=== PATIENT | female | born 1995 | race American Indian/Alaskan Native ===

== ENCOUNTER 2017-06-14 10:59 | Emergency (ER) | payer BC ==
[2017-06-14 11:20] VITALS: BP 136/83
[2017-06-14] MEDS ORDERED: DUONEB *Not for PRN Use IH ONE (11:49)
--- NOTE | 2017-06-14 11:51 | Emergency Department Report ---
Blank Doc - Documentation Documentation: Patient is 22 years old female with no significant past medical history. Patient presented to the ER complaining of shortness of breath started yesterday. Patient stated that she feel like she is allergic to something. She denied any rash. On exam patient has diffuse wheezing with increase in expiratory time. Patient will need breathing treatments and chest x-ray.
--- NOTE | 2017-06-14 12:09 | XRay Report ---
Single view chest: Next History: Shortness of breath. Findings: Normal cardiomediastinal silhouette. Trachea is midline. No consolidation, pneumothorax or pleural effusion. Impression: No acute cardiopulmonary findings
[2017-06-14] MEDS ORDERED: ATROVENT IH ONE (12:45)
[2017-06-14] MEDS ORDERED: XOPENEX IH ONE (12:45)
[2017-06-14] MEDS ORDERED: ZOFRAN ODT PO ONE (12:49)
--- NOTE | 2017-06-14 12:50 | Emergency Department Report ---
HPI - General Chief Complaint: Dyspnea/Respdistress Time Seen by Provider: 06/14/17 11:30 - HPI HPI: Patient is 22 years old female with no significant past medical history. Patient presented to the ER complaining of shortness of breath started yesterday. Patient stated that she feel like she is allergic to something. She denied any rash. Patient reports nasal congestion and drainage with postnasal drainage from pollen. Nasal congestion, drainage and postnasal drip proceeded shortness of breath and wheezing by over a week. No [id number] medication taken. Denies any headache, chest pain, nausea or vomiting. Denies any fever or chills. Nothing makes it betteror worse. Denies control, denies any recent travel long distance by airplane or car. He denies any swollen extremities. Denies any history of clots in her lungs or legs. ED Past Medical Hx - Past Medical History Previous Medical History?: Yes Additional medical history: Seasonal allergies - Surgical History Past Surgical History?: No - Family History Family history: no significant - Social History Smoking Status: Current Every Day Smoker Substance Use Type: Alcohol, Marijuana - Medications Home Medications: Home Medications Medication Instructions Recorded Confirmed Last Taken Type ALBUTEROL Inhaler [ProAir HFA 2 puff IH Q6H PRN #1 inhalation 06/14/17 Unknown Rx Inhaler] Amoxicillin/K Clav Tab [Augmentin 1 tab PO Q12HR 10 Days #20 tab 06/14/17 Unknown Rx 875 mg] Cetirizine HCl [ZyrTEC] 10 mg PO QAM 14 Days #14 capsule 06/14/17 Unknown Rx Fluticasone [Flonase] 1 spray NS QDAY 14 Days #1 bottle 06/14/17 Unknown Rx predniSONE [Deltasone] 50 mg PO QDAY 5 Days #5 tab 06/14/17 Unknown Rx ED Review of Systems ROS: Stated complaint: CHEST PAIN/DIFF BREATHING Other details as noted in HPI Comment: All other systems reviewed and negative Constitutional: no symptoms reported Eyes: denies: eye pain, eye discharge ENT: congestion. denies: ear pain, throat pain, dental pain, epistaxis Respiratory: cough, shortness of breath, SOB with exertion, wheezing. denies: orthopnea, SOB at rest, stridor Cardiovascular: denies: chest pain, palpitations, edema, syncope Gastrointestinal: denies: abdominal pain, nausea, vomiting, diarrhea, constipation, hematemesis, melena, hematochezia Genitourinary: denies: urgency, dysuria, hematuria, discharge Skin: denies: rash Neurological: denies: headache Physical Exam - Physical Exam Vital Signs: Vital Signs 06/14/17 11:15 Temperature 98.5 F Pulse Rate 93 H Respiratory 28 H Rate Blood Pressure 136/83 O2 Sat by Pulse 96 Oximetry Vital Signs 06/14/17 06/14/17 11:15 12:54 Temperature 98.5 F Pulse Rate 93 H 100 H Respiratory 28 H 20 Rate Blood Pressure 136/83 O2 Sat by Pulse 96 100 Oximetry General: This is a 22-year-old female that is nontoxic in appearance but mild anxiety. Physical Exam: Head: Normocephalic atraumatic Ears:BIateral TM congested without erythema and loss of bony landmarks. Kenneth EAC with normal exam. No mastoid bone tenderness. Mouth: Moist, no pharyngeal erythema or exudate . No tonsillar erythema or exudate. UVULA midline and oral airways patent. No peritonsillar abscess Neck: Nontender to palpate, supple, normal range of motion. No adenopathy. No c- spine tenderness. Nose: Bilateral nasal mucosa congested with clear drainage. Maxillary and frontal sinuses non- tender to palpate. Eyes: Bilateral Sclerae and conjunctiva without injection. Bilateral pupils equal and reactive to light. Bilateral lids are normal. Normal accommodation.BEOMI Extremity: Clubbing, cyanosis or edema +2 pulses or extremities. Lungs: Tachypnea at 28. Wheezes throughout lung joyner with congested cough. Mild increased work of breathing,and no chest wall tenderness. CV: S1, S2. Regular rate and rhythm negative murmur. Capillary refill is less than 3 seconds Skin: Clean dry and intact, no rashes or lesions Psych: Mild anxiety ED Course Vital Signs 06/14/17 11:15 Temperature 98.5 F Pulse Rate 93 H Respiratory 28 H Rate Blood Pressure 136/83 O2 Sat by Pulse 96 Oximetry Vital Signs 06/14/17 06/14/17 11:15 12:54 Temperature 98.5 F Pulse Rate 93 H 100 H Respiratory 28 H 20 Rate Blood Pressure 136/83 O2 Sat by Pulse 96 100 Oximetry - Reevaluation(s) Reevaluation #1: 06/14/17 12:30 Patient received DuoNeb 1 amp 1, Atrovent 0.5 mg nebulizer and Solu-Medrol 125 mg IM. Upon reevaluation patient says she feels better but she thinks she needs another treatment. Patient with scattered wheezing to lower lung joyner. She has normal work of breathing. She also reports that she had an episode of nausea while she was in the room and vomited 1. Will reevaluate after Xopenex and Zofran ODT. Reevaluation #2: 06/14/17 13:22 Patient given Xopenex 1.25 mg and Atrovent 0.5 mg nebulizer with complete relief of wheezing. She says she is feeling a lot better. Nausea has been relieved. ED Medical Decision Making - EKG Data -: EKG Interpreted by Me (read by attending physician in ED) EKG shows normal: sinus rhythm Rate: normal (71 beats per minute) - EKG Data Interpretation: no acute changes - Radiology Data Radiology results: report reviewed Chest x-ray reveals no acute cardiopulmonary findings - Medical Decision Making ED course: Patient here complains shortness of breath and wheeze in that started yesterday but was preceded by nasal congestion and drainage and postnasal drip. Physical finding for patient with mild anxiety, wheezing and upper respiratory with cough and congestion. Patient with asthmatic bronchitis. Patient was given albuterol one amp, was Atrovent 0.5 mg nebulizer along with Solu-Medrol 125 mg IM. Upon reevaluation she states that she feels a little better but she still has some wheezing to her lower lung joyner. Patient given Xopenex 25 mg and Atrovent 0.5 mg nebulizer and reevaluated and she says she is feeling much better on her lung sounds are clear. based on PERC RULE,0 criteria No need for further workup, as <2% chance of PE. Patient also had one episode of nausea with vomiting after given Solu-Medrol and she was given Zofran for 8 mg ODT which relieved her nausea and no further vomiting. Since the surgery revealed no acute cardiopulmonary findings. EKG stable. Please refer to MDM section for EKG details and also for radiology details on chest x-ray. I discussed the patient her diagnosis, treatment plan and need to follow-up with primary care and if she doesn't have when she is to follow-up with [facility]. Patient voiced understanding of discharge diagnoses, treatment plan and follow-up. Patient discharged home with prescription for albuterol inhaler, prednisone, Zofran, Zyrtec, Flonase and Augmentin. Critical care attestation.: If time is entered above; I have spent that time in minutes in the direct care of this critically ill patient, excluding procedure time. ED Disposition Clinical Impression: Upper respiratory infection with cough and congestion, Mild anxiety, Acute asthmatic bronchitis Nausea & vomiting Qualifiers: Vomiting type: unspecified Vomiting Intractability: non-intractable Qualified Code(s): R11.2 - Nausea with vomiting, unspecified Disposition: - TO HOME OR SELFCARE Is pt being admited?: No Does the pt Need Aspirin: No Condition: Stable Instructions: Upper Respiratory Infection (ED), Acute Bronchitis (ED), Acute Cough (ED), Asthma (ED), Acute Nausea and Vomiting (ED) Additional Instructions: Please flush her nostrils out with saline nasal wash. Increase her fluid intake Zyrtec and Flonase for congestion Take Augmentin for acute bronchitis Take albuterol inhaler, prednisone for cough and wheezing Follow-up with primary care in 2 days and if he do not have a primary care he can follow up with [facility] family medicine to be evaluated and you also needs to have referral for outpatient pulmonary function tests and this will be done by primary care physician. Symptoms returns or worsens, please return to the emergency room Prescriptions: ALBUTEROL Inhaler [ProAir HFA Inhaler] 2 puff IH Q6H PRN #1 inhalation PRN Reason: cough and wheezing Amoxicillin/K Clav Tab [Augmentin 875 mg] 1 tab PO Q12HR 10 Days #20 tab Cetirizine HCl [ZyrTEC] 10 mg PO QAM 14 Days #14 capsule Fluticasone [Flonase] 1 spray NS QDAY 14 Days #1 bottle predniSONE [Deltasone] 50 mg PO QDAY 5 Days #5 tab Referrals: [facility] [Outside] - 06/16/17 PRIMARY CARE, [Primary Care Provider] - 06/16/17 PABLO ARREDONDO MD [Staff Physician] - 2-3 Days Forms: Work/School Release Form(ED)
== END 2017-06-14 13:37 | disposition home or self-care (01) ==
LOC: ED 10:59
DX: J45.909 Unspecified asthma, uncomplicated (principal); J06.9 Acute upper respiratory infection, unspecified; F41.9 Anxiety disorder, unspecified; R11.2 Nausea with vomiting, unspecified; F17.200 Nicotine dependence, unspecified, uncomplicated; F12.10 Cannabis abuse, uncomplicated
CPT/HCPCS: 71045; 93005; 93010; 96372; 99283; J2930; Q0162

== ENCOUNTER 2019-12-14 18:31 | Emergency (ER) | payer SELFPAY ==
[2019-12-14 19:31] VITALS: BP 120/69
[2019-12-14] MEDS ORDERED: IPRATROPIUM/ALBUTEROL SULFATE 3 ML AMPUL.NEB IH ONE (19:32)
--- NOTE | 2019-12-14 19:35 | Event Note ---
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 Further treatment and workup at subsequent clinical providers discretion. Patient/guardian urged not to elope from the ED as their condition may be serious if not clinically assessed and managed. Initial orders include: cxr labs breathing treatment prednisone
--- NOTE | 2019-12-14 20:32 | XRay Report ---
CHEST PA AND LATERAL VIEWS INDICATION: cp/cough. COMPARISON: None. FINDINGS: Support devices: None. Heart: Within normal limits. Lungs/Pleura: No acute pulmonary or pleural findings. IMPRESSION: 1. No acute findings. Signer Name: Petey Lockwood MD Signed: 12/14/2019 8:27 PM Workstation Name: [id number]
[2019-12-14 20:45] LABS: Basophils % (Auto) 0.4 % (0.0-1.8); Eosinophils # (Auto) 0.1 K/mm3 (0.0-0.4); Eosinophils % (Auto) 1.2 % (0.0-4.3); Hematocrit 34.7 % (30.3-42.9); Hemoglobin 11.3 gm/dl (10.1-14.3); Lymphocytes # (Auto) 0.4 K/mm3 (1.2-5.4); Lymphocytes % (Auto) 6.6 % (13.4-35.0); Mean Corpuscular HGB Conc 33 % (30-34); Mean Corpuscular Volume 91 fl (79-97); Monocytes # (Auto) 0.5 K/mm3 (0.0-0.8); Monocytes % (Auto) 7.7 % (0.0-7.3); Platelet Count 330 K/mm3 (140-440); Red Blood Count 3.84 M/mm3 (3.65-5.03); Red Cell Distribution Width 14.7 % (13.2-15.2)
[2019-12-14 20:50] LABS: Blood Urea Nitrogen 5 mg/dL (7-17); Hemolysis Index 8
[2019-12-14 20:51] LABS: BUN/Creatinine Ratio 7
[2019-12-14 20:53] LABS: C-Reactive Protein 0.8 mg/dL (0.00-1.30)
[2019-12-14] MEDS ORDERED: ALBUTEROL 2.5 MG/3 ML NEBU IH ONE (21:32)
[2019-12-14] MEDS ORDERED: predniSONE 50 MG TAB PO STA (23:09)
--- NOTE | 2019-12-14 23:15 | Emergency Department Report ---
ED Asthma HPI - General Chief Complaint: Dyspnea/Respdistress Stated Complaint: KADEN/COUGH Time Seen by Provider: 12/14/19 21:31 Source: patient Mode of arrival: Ambulatory Limitations: No Limitations - History of Present Illness Initial Comments: 24-year-old Lebanese female presents emergency department complaining of a couple day history of cough associated with diarrhea sore throat wheezing and heavy mucus production of an unknown etiology. No hemoptysis no hematemesis no hematochezia. No fevers or no abdominal pain. No known contact with [facility] of any other sick contacts no foreign travel MD Complaint: "asthma attack", shortness of breath, wheezing -: Gradual Severity: mild Context: recent URI Associated Symptoms: productive cough - Related Data Previous Rx's Medication Instructions Recorded Last Taken Type Albuterol Mdi (or & Nicu Only) 2 puff IH Q6H PRN #1 inhalation 06/14/17 Unknown Rx [ProAir HFA Inhaler] Amoxicillin/K Clav Tab [Augmentin 1 tab PO Q12HR 10 Days #20 tab 06/14/17 Unknown Rx 875 mg] Cetirizine HCl [ZyrTEC] 10 mg PO QAM 14 Days #14 capsule 06/14/17 Unknown Rx Fluticasone [Flonase] 1 spray NS QDAY 14 Days #1 bottle 06/14/17 Unknown Rx predniSONE [Deltasone] 50 mg PO QDAY 5 Days #5 tab 06/14/17 Unknown Rx Albuterol Mdi (or & Nicu Only) 2 puff IH QID PRN #1 inhalation 12/14/19 Unknown Rx [ProAir HFA Inhaler] Azithromycin [Zithromax] 500 mg PO QDAY #3 tablet 12/14/19 Unknown Rx Montelukast [Singulair] 10 mg PO QPM #14 tablet 12/14/19 Unknown Rx predniSONE [Deltasone] 50 mg PO QDAY #5 tab 12/14/19 Unknown Rx Allergies Allergy/AdvReac Type Severity Reaction Status Date / Time No Known Allergies Allergy Unverified 06/14/17 11:15 ED Review of Systems ROS: Stated complaint: KADEN/COUGH Other details as noted in HPI Comment: All other systems reviewed and negative ED Past Medical Hx - Past Medical History Previous Medical History?: Yes Hx Asthma: Yes (Seasonal) Additional medical history: Seasonal allergies - Surgical History Past Surgical History?: No - Social History Smoking Status: Never Smoker Substance Use Type: None - Medications Home Medications: Home Medications Medication Instructions Recorded Confirmed Last Taken Type Albuterol Mdi (or & Nicu Only) 2 puff IH Q6H PRN #1 inhalation 06/14/17 Unknown Rx [ProAir HFA Inhaler] Amoxicillin/K Clav Tab [Augmentin 1 tab PO Q12HR 10 Days #20 tab 06/14/17 Unkn own Rx 875 mg] Cetirizine HCl [ZyrTEC] 10 mg PO QAM 14 Days #14 capsule 06/14/17 Unknown Rx Fluticasone [Flonase] 1 spray NS QDAY 14 Days #1 bottle 06/14/17 Unknown Rx predniSONE [Deltasone] 50 mg PO QDAY 5 Days #5 tab 06/14/17 Unknown Rx Albuterol Mdi (or & Nicu Only) 2 puff IH QID PRN #1 inhalation 12/14/19 Unknown Rx [ProAir HFA Inhaler] Azithromycin [Zithromax] 500 mg PO QDAY #3 tablet 12/14/19 Unknown Rx Montelukast [Singulair] 10 mg PO QPM #14 tablet 12/14/19 Unknown Rx predniSONE [Deltasone] 50 mg PO QDAY #5 tab 12/14/19 Unknown Rx ED Physical Exam - General Limitations: No Limitations General appearance: alert, in no apparent distress - Head Head exam: Present: atraumatic, normocephalic - Eye Eye exam: Present: normal appearance, PERRL Pupils: Present: normal accommodation - ENT ENT exam: Present: normal exam, normal orophraynx, mucous membranes moist, TM's normal bilaterally - Neck Neck exam: Present: normal inspection, full ROM - Respiratory Respiratory exam: Present: normal lung sounds bilaterally, wheezes, rhonchi. Absent: respiratory distress, chest wall tenderness, accessory muscle use, decreased breath sounds, prolonged expiratory - Cardiovascular Cardiovascular Exam: Present: regular rate, normal rhythm. Absent: systolic murmur, diastolic murmur, rubs, gallop - GI/Abdominal GI/Abdominal exam: Present: soft, normal bowel sounds - Extremities Exam Extremities exam: Present: normal inspection, normal capillary refill - Back Exam Back exam: Present: normal inspection. Absent: CVA tenderness (R), CVA tenderness (L) - Neurological Exam Neurological exam: Present: alert, oriented X3, CN II-XII intact - Psychiatric Psychiatric exam: Present: normal affect, normal mood. Absent: anxious, flat affect, manic - Skin Skin exam: Present: warm, dry, intact, normal color. Absent: rash ED Course Vital Signs 12/14/19 12/14/19 19:27 19:44 Temperature 98.2 F 99.8 F H Pulse Rate 82 Respiratory 18 Rate Blood Pressure 120/69 O2 Sat by Pulse 100 Oximetry ED Medical Decision Making - Lab Data Result diagrams: 12/14/19 Unknown 12/14/19 Unknown - Radiology Data Radiology results: report reviewed Referring Physician:DEJUAN DORANPatient Name:JENNIFER REEVESPatient ID:[id number] of :[id number]:FemaleAccession:[id number] Date:[id number] Status:Finalized Findings [facility] [address] [place] [address] XRay Report Signed Patient: JENNIFER REEVES MR#: [id number] : 1995 Acct:[id number] Age/Sex: 24 / F ADM Date: 12/14/19 Loc: ED Attending Dr: Ordering Physician: ESTEBAN ROSALES Date of Service: 12/14/19 Procedure(s): XR chest routine 2V Accession Number(s): [id number] cc: ESTEBAN ROSALES Fluoro Time In Minutes: CHEST PA AND LATERAL VIEWS INDICATION: cp/cough. COMPARISON: None. FINDINGS: Support devices: None. Heart: Within normal limits. Lungs/Pleura: No acute pulmonary or pleural findings. IMPRESSION: 1. No acute findings. Signer Name: Petey Lockwood MD Signed: 12/14/2019 8:27 PM Workstation Name: [id number] Transcribed By: TARYN Dictated By: Petey Lockwood MD Electronically Authenticated By: Petey Lockwood MD Signed Date/Time: 12/14/192026 DD/ 26 TD/TT: Critical care attestation.: If time is entered above; I have spent that time in minutes in the direct care of this critically ill patient, excluding procedure time. ED Disposition Clinical Impression: Bronchitis, Asthma Disposition: DC-01 TO HOME OR SELFCARE Is pt being admited?: No Does the pt Need Aspirin: No Condition: Stable Instructions: Chronic Bronchitis (ED), Asthma (ED), COVID-19 Prescriptions: predniSONE [Deltasone] 50 mg PO QDAY #5 tab Albuterol Mdi (or & Nicu Only) [ProAir HFA Inhaler] 2 puff IH QID PRN #1 inhalation PRN Reason: Shortness Of Breath Montelukast [Singulair] 10 mg PO QPM #14 tablet Azithromycin [Zithromax] 500 mg PO QDAY #3 tablet Referrals: PRIMARY CARE, [Primary Care Provider] - 3-5 Days
== END 2019-12-15 02:27 | disposition home or self-care (01) ==
LOC: ED 18:31
DX: J45.909 Unspecified asthma, uncomplicated (principal); Z79.899 Other long term (current) drug therapy
CPT/HCPCS: 36415; 71046; 80048; 82728; 83615; 84145; 85025; 86140; 93005; 94640; 99284; J7512